=== PATIENT | female | born 1950 | race Caucasian/White ===

== ENCOUNTER 2016-11-29 17:29 | Emergency (ER) | payer MEDICARE, OTHER ==
[2016-11-29 18:17] LABS: ALBUMIN 4.1 gm/dL (3.4-5.0); BILIRUBIN,TOTAL 0.26 mg/dL (0.0-1.0); POTASSIUM 4.9 mmol/L (3.5-5.1); TOTAL PROTEIN 6.6 gm/dL (6.4-8.2)
== END 2016-11-29 18:54 | disposition other institution (70) ==
LOC: ER 17:29
PROVIDERS: General Practice
DX: M79.672 Pain in left foot (principal); R79.1 Abnormal coagulation profile; Z87.81 Personal history of (healed) traumatic fracture; Z79.899 Other long term (current) drug therapy; Z79.1 Long term (current) use of non-steroidal anti-inflammatories (NSAID)
CPT/HCPCS: 36415; 73630; 80053; 85379; 96372; 99070; 99283-25